=== PATIENT | female | born 1955 ===

== ENCOUNTER 2017-11-03 20:42 | Inpatient (IN) | payer BC, OTHER ==
[2017-11-03] MEDS ORDERED: Albuterol-Ipratrop 3 mg / 0.5 (3 ml) UD ONE ×2 (20:54→21:11)
[2017-11-03] MEDS ORDERED: Albuterol-Ipratrop 3 mg / 0.5 (3 ml) UD INH STA ×3 (21:11→21:12)
--- NOTE | 2017-11-03 21:11 | C.PDOC ---
"History Of Present Illness 62 y/o female presents to ED with c/o sob and cough for 1 week and abdominal pain. Patient states cough is productive and denies fever, chest pain, nausea, vomiting or any other complaints at this time. Chief Complaint (Nursing): Shortness Of Breath History Per: Patient History/Exam Limitations: no limitations Onset/Duration Of Symptoms: Days Current Symptoms Are (Timing): Still Present Past Medical History Reviewed: Historical Data, Nursing Documentation, Vital Signs Vital Signs: Last Vital Signs Temp 99.1 F 11/03/17 20:45 Pulse 102 H 11/03/17 23:07 Resp 16 11/03/17 23:07 BP 123/55 L 11/03/17 23:07 Pulse Ox 98 11/04/17 01:11 - Medical History PMH: Bronchitis (1 month ago), HTN Surgical History: No Surg Hx Family History: States: No Known Family Hx - Social History Hx Tobacco Use: No Hx Alcohol Use: No Hx Substance Use: No - Immunization History Hx Tetanus Toxoid Vaccination: No Hx Influenza Vaccination: No Hx Pneumococcal Vaccination: No Review Of Systems Constitutional: Negative for: Fever, Chills Cardiovascular: Negative for: Chest Pain Respiratory: Positive for: Cough, Shortness of Breath Gastrointestinal: Negative for: Nausea, Vomiting Skin: Negative for: Rash Physical Exam - Physical Exam Appears: Non-toxic, No Acute Distress Skin: Warm, Dry, No Rash Head: Atraumatic, Normacephalic Eye(s): bilateral: Normal Inspection Oral Mucosa: Moist Neck: Normal ROM, Supple Cardiovascular: Rhythm Regular Respiratory: Decreased Breath Sounds, No Rales, No Rhonchi, No Wheezing Gastrointestinal/Abdominal: Soft, Tenderness (Epigastric), No Guarding, No Rebound Back: No CVA Tenderness, No Paraspinal Tenderness Neurological/Psych: Oriented x3, Normal Speech, Normal Cognition ED Course And Treatment - Laboratory Results Result Diagrams: 11/03/17 21:25 11/03/17 21:25 ECG: Interpreted By Me, Viewed By Me ECG Rhythm: Sinus Rhythm ECG Interpretation: Normal, No Acute Changes Interpretation Of ECG: nomal tracings, Rate From EC O2 Sat by Pulse Oximetry: 98 (RA) Pulse Ox Interpretation: Normal - CT Scan/US CT Angio Chest Other Rad Studies (CT/US): Read By Radiologist, Radiology Report Reviewed CT/US Interpretation: EXAM: CT Angiography Chest With Intravenous Contrast. EXAM DATE/TIME: 11/03/2017 10:11 PM. CLINICAL HISTORY: 62 years old, female; Pain; Chest wall pain; Additional info: SOB. TECHNIQUE: Axial computed tomographic angiography images of the chest with intravenous contrast using. pulmonary embolism protocol. All CT scans at this facility use at least one of these dose optimization. techniques: automated exposure control; mA and/or kV adjustment per patient size (includes targeted. exams where dose is matched to clinical indication); or iterative reconstruction. MIP reconstructed images were created and reviewed. COMPARISON: No relevant prior studies available. FINDINGS: Pulmonary arteries: Unremarkable. No pulmonary embolism. Aorta: No acute findings. No thoracic aortic aneurysm. Lungs: Patchy consolidative opacities in the right middle lobe. Pleural space: Unremarkable. No significant effusion. No pneumothorax. Heart: Unremarkable. No cardiomegaly. No significant pericardial effusion. No evidence of RV. dysfunction. Thyroid: Right thyroid lobe 4 x 3.4 x 6 cm thyroid nodule exerts mass effect on the esophagus. Bones/joints: No acute fracture. No dislocation. Soft tissues: Unremarkable. Lymph nodes: Unremarkable. No enlarged lymph nodes. IMPRESSION: 1. No pulmonary embolism. 2. Right middle lobe pneumonia. 3. Right thyroid lobe 4 x 3.4 x 6 cm thyroid nodule exerts mass effect on the esophagus. CT Abdomen&Pelvis Other Rad Studies (CT/US): Read By Radiologist, Radiology Report Reviewed CT/US Interpretation: EXAM: CT Abdomen and Pelvis With Intravenous Contrast. EXAM DATE/TIME: 11/03/2017 9:14 PM. CLINICAL HISTORY: 62 years old, female; Pain; Abdominal pain; Flank; Left upper quadrant (luq); Additional info: Upper. abd pain. TECHNIQUE: Axial computed tomography images of the abdomen and pelvis with intravenous contrast. All CT. scans at this facility use at least one of these dose optimization techniques: automated exposure. control; mA and/ or kV adjustment per patient size (includes targeted exams where dose is matched to. clinical indication); or iterative reconstruction. Coronal and sagittal reformatted images were created and reviewed. COMPARISON: No relevant prior studies available. FINDINGS: Lung bases: See concurrent chest CT for findings above the diaphragm. ABDOMEN: Liver: Unremarkable. No mass. Gallbladder and bile ducts: Unremarkable. No calcified stones. No ductal dilation. Pancreas: Unremarkable. No mass. No ductal dilation. Spleen: Unremarkable. No splenomegaly. Adrenals: Unremarkable. No mass. Kidneys and ureters: Unremarkable. No solid mass. No hydronephrosis. Stomach and bowel: Unremarkable. No obstruction. No mucosal thickening. PELVIS: Appendix: No findings to suggest acute appendicitis. MARY WANG | Preliminary Radiology Report. CONFIDENTIALITY STATEMENT. This report is intended only for the use of the referring physician, and only in accordance with law, If you received this in error, call [phone]. Page 2 of 2. Bladder: Unremarkable. No mass. Reproductive: Left ovarian 2.4 cm cyst is benign appearing. ABDOMEN and PELVIS: Intraperitoneal space: Unremarkable. No free air. No significant fluid collection. Bones/joints: Degenerative changes are present in the lower lumbar spine. No acute fracture. No. dislocation. Soft tissues: Unremarkable. Vasculature: Unremarkable. No abdominal aortic aneurysm. Lymph nodes: Unremarkable. No enlarged lymph nodes. IMPRESSION: 1. No acute obstructive or inflammatory process in the abdomen or pelvis. 2. Left ovarian 2.4 cm cyst is benign appearing. Disposition Discussed With : Lisa Gordon Doctor Will See Patient In The: Hospital Counseled Patient/Family Regarding: Diagnosis - Disposition Disposition: HOSPITALIZED Disposition Time: 01:05 Condition: STABLE Forms: [facility] (Thai) - POA Present On Arrival: None - Clinical Impression Clinical Impression: Pneumonia, Thyroid enlarged - Scribe Statement The provider has reviewed the documentation as recorded by the Radha Brenner All medical record entries made by the Radha were at my direction and personally dictated by me. I have reviewed the chart and agree that the record accurately reflects my personal performance of the history, physical exam, medical decision making, and the department course for this patient. I have also personally directed, reviewed, and agree with the discharge instructions and disposition."
[2017-11-03] MEDS ORDERED: Sodium Chloride 0.9% 1,000 ML IV ONE (21:12)
--- NOTE | 2017-11-03 21:15 | C.PDOC ---
Chief Complaint (Nursing): Shortness Of Breath Past Medical History Vital Signs: Last Vital Signs Temp 99.1 F 11/03/17 20:45 Pulse 117 H 11/03/17 20:45 Resp 28 H 11/03/17 20:45 BP 147/67 11/03/17 20:45 Pulse Ox 98 11/03/17 20:45 - Medical History PMH: Bronchitis (1 month ago), HTN Denies: Chronic Kidney Disease Family History: States: Unknown Family Hx - Social History Hx Tobacco Use: No Hx Alcohol Use: No Hx Substance Use: No - Immunization History Hx Tetanus Toxoid Vaccination: No Hx Influenza Vaccination: No Hx Pneumococcal Vaccination: No ED Course And Treatment O2 Sat by Pulse Oximetry: 98 Disposition - Disposition
[2017-11-03 21:29] LABS: BASO # 0.1 K/uL (0.0-0.2); BASO % 0.7 % (0.0-2.0); EOS # 0.3 K/uL (0.0-0.7); HEMOGLOBIN 13.3 g/dL (11.0-16.0); LYMPH # 3.1 K/uL (1.0-4.3); LYMPH % 34.1 % (20.0-40.0); MEAN CELL VOLUME 86.7 fL (81.0-99.0); MEAN CORPUSCULAR HEMOGLOBIN 28.8 pg (27.0-31.0); MEAN CORPUSCULAR HGB CONC 33.2 g/dL (33.0-37.0); MEAN PLATELET VOLUME 6.8 fL (7.2-11.7); MONO % 10.7 % (0.0-10.0); NEUT # 4.6 K/uL (1.8-7.0); NEUT % 51.5 % (50.0-75.0); NRBC % 0.2 % (0.0-2.0); RBC 4.64 Mil/uL (3.80-5.20); RED CELL DISTRIBUTION WIDTH 13.5 % (11.5-14.5); WHITE BLOOD COUNT 8.9 K/uL (4.8-10.8)
[2017-11-03 21:43] LABS: INR 1.1; PROTHROMBIN TIME 12.4 SECONDS (9.7-12.2)
[2017-11-03 21:48] LABS: ALB/GLOB RATIO 1.2 (1.0-2.1); ALBUMIN 4.6 g/dL (3.5-5.0); ALT/SGPT 40 U/L (9-52); AST/SGOT 36 U/L (14-36); BLOOD UREA NITROGEN 11 mg/dL (7-17); CALCIUM 9.4 mg/dl (8.6-10.4); GFR AFRICAN-AMERICAN > 60; GFR NON-AFRICAN AMERICAN > 60; LIPASE 87 U/L (23-300)
[2017-11-03] MEDS ORDERED: Iodixanol 320 MG/ML 100 ML BOTTLE IV ONE (21:57)
[2017-11-03 21:58] LABS: B-TYPE NATRIURETIC PEPTIDE 33.8 pg/mL (0-900)
[2017-11-04] MEDS ORDERED: cefTRIAXone IV 1 gm in Dextros 50 ML IVPB ONE ×2 (00:56→01:06)
[2017-11-04] MEDS ORDERED: Azithromycin 500mg/250ML NS 500 MG/250 ML BAG IV STA (00:57)
[2017-11-04 02:03] VITALS: RESP 20
[2017-11-04] MEDS ORDERED: guaiFENesin 100 mg/5 ml Syrup UD PO ONE (02:34)
[2017-11-04] MEDS ORDERED: Albuterol-Ipratrop 3 mg / 0.5 (3 ml) UD INH SCH (08:00)
--- NOTE | 2017-11-04 08:10 | CT ---
PROCEDURE: CT Abdomen and Pelvis with intravenous contrast HISTORY: Upper abdominal pain COMPARISON: None. TECHNIQUE: Multiple contiguous axial images were performed through the abdomen and pelvis with the use of intravenous contrast. Subsequently, sagittal and coronal reformatted images were obtained. Radiation dose: Total exam DLP = eight hundred twelve mGy-cm. This CT exam was performed using one or more of the following dose reduction techniques: Automated exposure control, adjustment of the mA and/or kV according to patient size, and/or use of iterative reconstruction technique. FINDINGS: LOWER THORAX: Prominent ill-defined consolidation seen within the posterior aspect of the right middle lobe. LIVER: Unremarkable. No gross lesion or ductal dilatation. GALLBLADDER AND BILE DUCTS: Unremarkable. PANCREAS: Unremarkable. No gross lesion or ductal dilatation. SPLEEN: Unremarkable. ADRENALS: Unremarkable. No mass. KIDNEYS AND URETERS: Multiple bilateral low-attenuation lesions in both kidneys for example in the right kidney measuring 2.2 centimeters demonstrating a Hounsfield unit attenuation of 22 and in the left kidney measuring 2.3 centimeters demonstrating a Hounsfield unit attenuation of 11. These may be better evaluated with multiphasic CT or MR if clinically indicated. VASCULATURE: Unremarkable. No aortic aneurysm. BOWEL: Unremarkable. No obstruction. No gross mural thickening. APPENDIX: No findings to suggest acute appendicitis. PERITONEUM: Unremarkable. No free fluid. No free air. LYMPH NODES: Unremarkable. No enlarged lymph nodes. BLADDER: Unremarkable. REPRODUCTIVE: 2.4 centimeter left ovarian cyst. BONES: Degenerative changes in the lower lumbar spine. Prominent disc space narrowing with posterior disc osteophyte complex at the L5-S1 level. OTHER FINDINGS: None. IMPRESSION: 2.4 centimeter left ovarian cyst. Ill-defined nodular consolidation within the right middle lobe of the lung. Clinical correlation. Multiple bilateral low-attenuation lesions in both kidneys for example in the right kidney measuring 2.2 centimeters demonstrating a Hounsfield unit attenuation of 22 and in the left kidney measuring 2.3 centimeters demonstrating a Hounsfield unit attenuation of 11. These may be better evaluated with multiphasic CT or MR if clinically indicated. These findings were preliminarily reported at 11:12 p.m. on 11/03/[address] Mandeep Hummel from [employer].
--- NOTE | 2017-11-04 08:38 | CT ---
PROCEDURE: CT Chest with contrast (Pulmonary Angiogram) HISTORY: Shortness of breath COMPARISON: None available. TECHNIQUE: Axial computed tomography images were obtained of the chest in the pulmonary arterial phase of enhancement. Coronal and sagittal reformatted images were created and reviewed. Sagittal and coronal MIPS reformatted images were obtained. Radiation dose: Total exam DLP = 449 mGy-cm. This CT exam was performed using one or more of the following dose reduction techniques: Automated exposure control, adjustment of the mA and/or kV according to patient size, and/or use of iterative reconstruction technique. FINDINGS: PULMONARY ARTERIES: Unremarkable. No pulmonary embolism. AORTA: No acute findings. No thoracic aortic aneurysm. LUNGS: Prominent ill-defined patchy consolidation seen within the right middle lobe. PLEURAL SPACES: Unremarkable. No effusion or pneuomothorax. HEART: Unremarkable. No cardiomegaly. No significant pericardial effusion. LYMPH NODES: No lymphadenopathy. BONES, CHEST WALL: Unremarkable. No fracture or destructive lesion OTHER FINDINGS: 4.0 x 3.4 x 6.0 centimeter thyroid nodule exerts mass effect on the esophagus. IMPRESSION: No acute central pulmonary embolism. Focal ill-defined consolidative changes noted within the right middle lobe of the lung concerning for possible pneumonia. Posttreatment interval followup exam would be helpful for further evaluation if clinically indicated. 6 centimeter right thyroid nodule exerts mass effect on the esophagus. Correlation with thyroid ultrasound may be helpful if clinically indicated. These findings were preliminarily reported at 11:08 p.m. on 11/03/[address] Mandeep Hummel from [facility].
--- NOTE | 2017-11-04 09:27 | RAD ---
Chest x-ray single frontal view History: Shortness of breath. Comparison: 05/15/2016 Findings: Mild venous congestion. Confluent consolidation seen within the right mid lung zone concerning for infiltrate. Tortuous aorta. Heart size within normal limits. Degenerative changes in the spine. Impression: Prominent consolidative changes seen within the right mid lung zone. Clinical correlation.
[2017-11-04] MEDS: Promethazine 6.25 MG/5 ML CUP PO PRN ×2 (09:49→18:07)
[2017-11-04] MEDS: Enoxaparin 40 mg Syringe SC SCH (09:50)
[2017-11-04] MEDS: Albuterol-Ipratrop 3 mg / 0.5 (3 ml) UD INH SCH ×2 (16:01→19:17)
[2017-11-04 16:14] LABS: SQUAMOUS EPITHIAL 1 /hpf (0-5); URINE BILIRUBIN NEGATIVE (NEGATIVE); URINE BLOOD NEGATIVE (NEGATIVE); URINE CLARITY Clear (Clear); URINE COLOR Yellow (YELLOW); URINE GLUCOSE (UA) NORMAL (Normal); URINE LEUKOCYTE ESTERASE NEG Leu/uL (Negative); URINE PROTEIN NEGATIVE (NEGATIVE); URINE UROBILINOGEN NORMAL mg/dL (0.2-1.0)
--- NOTE | 2017-11-04 21:00 | CP.PCM.HP ---
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 Patient was complaining of cough for almost 2-3 weeks, even prior to that she was having on and off cough especially at nighttime when she is lying down. But for the last 2-3 weeks she was having increasing cough, recently she started having increasing weakness, tiredness, easy fatigability. Sweating noted. Chills present. But no fever noted. She was also having cough, mostly dry in nature, occasionally mucus noted. Which is yellow in discoloration. She does not have any blood in the mucus. She denies any nausea vomiting, but complaining of abdominal pain on and off because of the cough. As the patient condition got worse, she was seen, and evaluated in the emergency room. In the emergency room patient underwent extensive workup, and noted to have pneumonia in the lungs. 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 Patient is having some headache, no nausea vomiting, but complaining of increasing cough, shortness of breath, exertional dyspnea noted. Abdominal pain with the cough noted, no diarrhea Current medications none On examination: Vital signs stable. Chest bilateral minimal expiratory wheezing noted. Regular heart sound noted. Nontender abdomen. Pedal edema 1+ noted Patient's labs reviewed Nonspecific. Mild elevation of the glucose noted. Pro calcitonin level is normal. CBC is negative. D-dimer elevated. INR is 1.1. Patient underwent a CAT scan of the lungs with contrast to rule out a PE. No acute pulmonary embolism noted, consolidation noted in the right midlung. 6 cm thyroid nodule with mass-effect in the esophagus noted. CAT scan of the abdomen and pelvis reviewed 2.4 cm left ovarian cyst noted multiple low-attenuation lesions in the kidney noted 2.2 cm and 2.3 cm, which may needed to do an MRI with contrast if needed. Assessment and recommendation: 62-year-old female with history of chronic lower back pain osteoarthritis and a substernal goiter admitted now with the possible acute pneumonia. Patient will need IV antibiotic. Bronchodilator. Patient also has slightly worsening substernal goiter, with minimal mass-effect also noted in the esophagus, surgical evaluation advised. DVT GI prophylaxis. We will continue the current treatment. We will follow the patient Present on Admission - Present on Admission Any Indicators Present on Admission: No History of DVT/PE: No History of Uncontrolled Diabetes: No Urinary Catheter: No Decubitus Ulcer Present: No Past Patient History - Past Medical History & Family History Past Medical History?: Yes - Past Social History Smoking Status: Never Smoked - CARDIAC Hx Hypertension: Yes - PULMONARY Hx Bronchitis: Yes (1 month ago) - NEUROLOGICAL Hx Neurological Disorder: No - HEENT Hx HEENT Problems: No - RENAL Hx Chronic Kidney Disease: No - ENDOCRINE/METABOLIC Hx Endocrine Disorders: No - HEMATOLOGICAL/ONCOLOGICAL Hx Blood Disorders: No - INTEGUMENTARY Hx Dermatological Problems: No - MUSCULOSKELETAL/RHEUMATOLOGICAL Hx Musculoskeletal Disorders: No Hx Falls: No - GASTROINTESTINAL Hx Gastrointestinal Disorders: No - GENITOURINARY/GYNECOLOGICAL Hx Genitourinary Disorders: No - PSYCHIATRIC Hx Substance Use: No - SURGICAL HISTORY Hx Surgeries: Yes Hx Section: Yes (x6) - ANESTHESIA Hx Anesthesia: Yes Hx Anesthesia Reactions: No Hx Malignant Hyperthermia: No Meds Allergies/Adverse Reactions: Allergies Allergy/AdvReac Type Severity Reaction Status Date / Time No Known Allergies Allergy Verified 05/15/16 18:40 Results - Vital Signs Recent Vital Signs: Last Vital Signs Temp 97.8 F 11/04/17 16:00 Pulse 75 11/04/17 16:00 Resp 20 11/04/17 16:00 BP 101/63 11/04/17 16:00 Pulse Ox 95 11/04/17 16:00 - Labs Result Diagrams: 11/03/17 21:25 11/03/17 21:25 Labs: Laboratory Results - last 24 hr 11/03/17 11/03/17 11/03/17 21:25 21:25 21:25 WBC 8.9 RBC 4.64 Hgb 13.3 Hct 40.2 MCV 86.7 MCH 28.8 MCHC 33.2 RDW 13.5 Plt Count 367 MPV 6.8 L Neut % (Auto) 51.5 Lymph % (Auto) 34.1 [place] % (Auto) 10.7 H Eos % (Auto) 3.0 Baso % (Auto) 0.7 Neut # (Auto) 4.6 Lymph # (Auto) 3.1 [place] # (Auto) 1.0 H Eos # (Auto) 0.3 Baso # (Auto) 0.1 PT 12.4 H INR 1.1 D-Dimer, Quantitative 343 H Sodium 143 Potassium 4.4 Chloride 102 Carbon Dioxide 29 Anion Gap 16 BUN 11 Creatinine 0.8 Est GFR ( Amer) > 60 Est GFR (Non-Af Amer) > 60 Random Glucose 112 H Calcium 9.4 Total Bilirubin 0.9 AST 36 ALT 40 Alkaline Phosphatase 93 Troponin I < 0.0120 NT-Pro-B Natriuret Pep 33.8 Total Protein 8.4 H Albumin 4.6 Globulin 3.9 Albumin/Globulin Ratio 1.2 Lipase 87 Procalcitonin Free T4 Total T3 Urine Color Urine Clarity Urine pH Ur Specific [place] Urine Protein Urine Glucose (UA) Urine Ketones Urine Blood Urine Nitrate Urine Bilirubin Urine Urobilinogen Ur Leukocyte Esterase Urine WBC (Auto) Urine RBC (Auto) Ur Squamous Epith Cells 11/04/17 11/04/17 11/04/17 01:27 01:27 10:02 WBC RBC Hgb Hct MCV MCH MCHC RDW Plt Count MPV Neut % (Auto) Lymph % (Auto) [place] % (Auto) Eos % (Auto) Baso % (Auto) Neut # (Auto) Lymph # (Auto) [place] # (Auto) Eos # (Auto) Baso # (Auto) PT INR D-Dimer, Quantitative Sodium Potassium Chloride Carbon Dioxide Anion Gap BUN Creatinine Est GFR ( Amer) Est GFR (Non-Af Amer) Random Glucose Calcium Total Bilirubin AST ALT Alkaline Phosphatase Troponin I NT-Pro-B Natriuret Pep Total Protein Albumin Globulin Albumin/Globulin Ratio Lipase Procalcitonin < 0.05 L Free T4 1.45 Total T3 1.82 Urine Color Urine Clarity Urine pH Ur Specific [place] Urine Protein Urine Glucose (UA) Urine Ketones Urine Blood Urine Nitrate Urine Bilirubin Urine Urobilinogen Ur Leukocyte Esterase Urine WBC (Auto) Urine RBC (Auto) Ur Squamous Epith Cells 11/04/17 16:06 WBC RBC Hgb Hct MCV MCH MCHC RDW Plt Count MPV Neut % (Auto) Lymph % (Auto) [place] % (Auto) Eos % (Auto) Baso % (Auto) Neut # (Auto) Lymph # (Auto) [place] # (Auto) Eos # (Auto) Baso # (Auto) PT INR D-Dimer, Quantitative Sodium Potassium Chloride Carbon Dioxide Anion Gap BUN Creatinine Est GFR ( Amer) Est GFR (Non-Af Amer) Random Glucose Calcium Total Bilirubin AST ALT Alkaline Phosphatase Troponin I NT-Pro-B Natriuret Pep Total Protein Albumin Globulin Albumin/Globulin Ratio Lipase Procalcitonin Free T4 Total T3 Urine Color Yellow Urine Clarity Clear Urine pH 5.0 Ur Specific [place] 1.027 Urine Protein Negative Urine Glucose (UA) Normal Urine Ketones Negative Urine Blood Negative Urine Nitrate Negative Urine Bilirubin Negative Urine Urobilinogen Normal Ur Leukocyte Esterase Neg Urine WBC (Auto) < 1 Urine RBC (Auto) 1 Ur Squamous Epith Cells 1
--- NOTE | 2017-11-04 23:24 | CARD ---
APPROVED REPORT EKG Measurement Heart [id number] <Conclusion> Normal sinus rhythm Normal ECG
[2017-11-05] MEDS: Promethazine 6.25 MG/5 ML CUP PO PRN ×2 (00:35→17:53)
[2017-11-05] MEDS: Azithromycin 500 MG in Sodium Chloride 0.9% 250 ML IVPB SCH (01:20)
[2017-11-05] MEDS: Albuterol-Ipratrop 3 mg / 0.5 (3 ml) UD INH SCH ×4 (01:23→19:57)
[2017-11-05 07:47] LABS: BASO % 0.2 % (0.0-2.0); EOS % 0.2 % (0.0-4.0); HEMOGLOBIN 12.3 g/dL (11.0-16.0); LYMPH # 2.1 K/uL (1.0-4.3); LYMPH % 22.2 % (20.0-40.0); MEAN CORPUSCULAR HEMOGLOBIN 29.7 pg (27.0-31.0); MEAN CORPUSCULAR HGB CONC 34.1 g/dL (33.0-37.0); MEAN PLATELET VOLUME 6.9 fL (7.2-11.7); MONO # 0.6 K/uL (0.0-0.8); MONO % 6.3 % (0.0-10.0); NEUT # 6.8 K/uL (1.8-7.0); NEUT % 71.1 % (50.0-75.0); RBC 4.13 Mil/uL (3.80-5.20); RED CELL DISTRIBUTION WIDTH 13.8 % (11.5-14.5); WHITE BLOOD COUNT 9.6 K/uL (4.8-10.8)
[2017-11-05 08:10] LABS: ALB/GLOB RATIO 1.2 (1.0-2.1); ALBUMIN 3.7 g/dL (3.5-5.0); ALT/SGPT 30 U/L (9-52); AST/SGOT 33 U/L (14-36); BLOOD UREA NITROGEN 16 mg/dL (7-17); CALCIUM 8.5 mg/dl (8.6-10.4); GFR AFRICAN-AMERICAN > 60; GFR NON-AFRICAN AMERICAN > 60
[2017-11-05] MEDS: Enoxaparin 40 mg Syringe SC SCH (10:39)
--- NOTE | 2017-11-05 11:12 | CP.PCM.CON ---
<Rodrigo Angela - Last Filed: 11/05/17 10:58> History of Present Illness - History of Present Illness History of Present Illness: General Surgery Consult Note for Dr. Duran Consulted for: Goiter 62F presenting with PNA for the past 2 weeks that has progressively worsened.Pt has a known history of a goiter that she has had for over a year confirmed with outpatient CT scan through her PCP. A 2014 CT scan shows goiter with mass effect. She feels the presence of goiter but no dysphagia. She denies any fever or chills. She admits to SOB that worsens with exertion. She cannot go up an entire flight of stairs without having to catch her breath every few steps. Pt reports normal ECHO a year ago. Denies any weight changes or heat/cold intolerance. PMH: Goiter PSH: ALL: none Social: denies tobacco, alcohol, and drugs Review of Systems - Constitutional Constitutional: absent: Night Sweats, Weight Gain, Weight Loss - Cardiovascular Cardiovascular: Dyspnea on Exertion. absent: Chest Pain - Respiratory Respiratory: Cough, Dyspnea on Exertion, Chest Congestion - Endocrine Endocrine: absent: Cold Intolorance, Heat Intolorance Past Patient History - Past Medical History & Family History Past Medical History?: Yes - Past Social History Smoking Status: Never Smoked - CARDIAC Hx Hypertension: Yes - PULMONARY Hx Bronchitis: Yes (1 month ago) - NEUROLOGICAL Hx Neurological Disorder: No - HEENT Hx HEENT Problems: No - RENAL Hx Chronic Kidney Disease: No - ENDOCRINE/METABOLIC Hx Endocrine Disorders: No - HEMATOLOGICAL/ONCOLOGICAL Hx Blood Disorders: No - INTEGUMENTARY Hx Dermatological Problems: No - MUSCULOSKELETAL/RHEUMATOLOGICAL Hx Musculoskeletal Disorders: No Hx Falls: No - GASTROINTESTINAL Hx Gastrointestinal Disorders: No - GENITOURINARY/GYNECOLOGICAL Hx Genitourinary Disorders: No - PSYCHIATRIC Hx Substance Use: No - SURGICAL HISTORY Hx Surgeries: Yes Hx Section: Yes (x6) - ANESTHESIA Hx Anesthesia: Yes Hx Anesthesia Reactions: No Hx Malignant Hyperthermia: No Meds Allergies/Adverse Reactions: Allergies Allergy/AdvReac Type Severity Reaction Status Date / Time No Known Allergies Allergy Verified 05/15/16 18:40 - Medications Medications: Current Medications Acetaminophen (Tylenol 325mg Tab) 650 mg PO Q8 PRN PRN Reason: Fever >100.4 F Albuterol/Ipratropium (Duoneb 3 Mg/0.5 Mg (3 Ml) Ud) 3 ml INH RQ6 IRASEMA Last Admin: 11/05/17 07:45 Dose: 3 ml Enoxaparin Sodium (Lovenox) 40 mg SC DAILY [facility] Last Admin: 11/05/17 10:39 Dose: Not Given Ceftriaxone Sodium 1 gm/ (Sodium Chloride) 100 mls @ 100 mls/hr IVPB Q24H IRASEMA PRN Reason: Protocol Last Admin: 11/05/17 00:35 Dose: 100 mls/hr Azithromycin 500 mg/ Sodium (Chloride) 250 mls @ 250 mls/hr IVPB Q24H IRASEMA PRN Reason: Protocol Last Admin: 11/05/17 01:20 Dose: 250 mls/hr Promethazine HCl (Phenergan Syrup) 6.25 mg PO Q6 PRN PRN Reason: Cough Last Admin: 11/05/17 00:35 Dose: 6.25 mg Physical Exam - Constitutional Appears: Non-toxic, No Acute Distress - Head Exam Head Exam: ATRAUMATIC, NORMAL INSPECTION, NORMOCEPHALIC - Eye Exam Eye Exam: EOMI, Normal appearance - ENT Exam ENT Exam: Mucous Membranes Moist - Neck Exam Neck exam: Positive for: Thyromegaly. Negative for: Tenderness - Respiratory Exam Respiratory Exam: NORMAL BREATHING PATTERN. absent: Respiratory Distress - Cardiovascular Exam Cardiovascular Exam: REGULAR RHYTHM, +S1, +S2 - GI/Abdominal Exam GI & Abdominal Exam: Soft. absent: Distended, Firm, Guarding, Tenderness - Rectal Exam Rectal Exam: Deferred - Extremities Exam Extremities exam: Positive for: normal inspection - Neurological Exam Neurological exam: Alert, Oriented x3 - Psychiatric Exam Psychiatric exam: Normal Affect, Normal Mood - Skin Skin Exam: Dry, Intact, Normal Color, Warm Results - Vital Signs Recent Vital Signs: Last Vital Signs Temp 98.0 F 11/05/17 07:00 Pulse 66 11/05/17 07:00 Resp 20 11/05/17 07:00 BP 100/58 L 11/05/17 07:00 Pulse Ox 96 11/05/17 07:00 - Labs Result Diagrams: 11/05/17 07:38 11/05/17 07:38 Labs: Laboratory Results - last 24 hr 11/04/17 11/04/17 11/05/17 10:02 16:06 07:38 WBC 9.6 RBC 4.13 Hgb 12.3 Hct 35.9 MCV 87.0 MCH 29.7 MCHC 34.1 RDW 13.8 Plt Count 331 MPV 6.9 L Neut % (Auto) 71.1 Lymph % (Auto) 22.2 [place] % (Auto) 6.3 Eos % (Auto) 0.2 Baso % (Auto) 0.2 Neut # (Auto) 6.8 Lymph # (Auto) 2.1 [place] # (Auto) 0.6 Eos # (Auto) 0.0 Baso # (Auto) 0.0 Sodium Potassium Chloride Carbon Dioxide Anion Gap BUN Creatinine Est GFR ( Amer) Est GFR (Non-Af Amer) Random Glucose Calcium Total Bilirubin AST ALT Alkaline Phosphatase Total Protein Albumin Globulin Albumin/Globulin Ratio Procalcitonin < 0.05 L TSH 3rd Generation Urine Color Yellow Urine Clarity Clear Urine pH 5.0 Ur Specific [place] 1.027 Urine Protein Negative Urine Glucose (UA) Normal Urine Ketones Negative Urine Blood Negative Urine Nitrate Negative Urine Bilirubin Negative Urine Urobilinogen Normal Ur Leukocyte Esterase Neg Urine WBC (Auto) < 1 Urine RBC (Auto) 1 Ur Squamous Epith Cells 1 11/05/17 07:38 WBC RBC Hgb Hct MCV MCH MCHC RDW Plt Count MPV Neut % (Auto) Lymph % (Auto) [place] % (Auto) Eos % (Auto) Baso % (Auto) Neut # (Auto) Lymph # (Auto) [place] # (Auto) Eos # (Auto) Baso # (Auto) Sodium 146 Potassium 4.2 Chloride 110 H Carbon Dioxide 26 Anion Gap 15 BUN 16 Creatinine 0.6 L Est GFR ( Amer) > 60 Est GFR (Non-Af Amer) > 60 Random Glucose 103 Calcium 8.5 L Total Bilirubin 0.4 AST 33 ALT 30 Alkaline Phosphatase 66 Total Protein 6.8 Albumin 3.7 Globulin 3.1 Albumin/Globulin Ratio 1.2 Procalcitonin TSH 3rd Generation 0.14 L Urine Color Urine Clarity Urine pH Ur Specific [place] Urine Protein Urine Glucose (UA) Urine Ketones Urine Blood Urine Nitrate Urine Bilirubin Urine Urobilinogen Ur Leukocyte Esterase Urine WBC (Auto) Urine RBC (Auto) Ur Squamous Epith Cells - Imaging and Cardiology CT scan - chest Status: Image reviewed by me, Report reviewed by me Assessment & Plan - Assessment and Plan (Free Text) Assessment: 62F admitted with PNA consulted for 6 cm Goiter Plan: Continue medical management for PNA Recommend cardiology work up for Dyspnea on Exertion Further recs per Dr. Roger Angela PGY1 <Freddie Duran - Last Filed: 11/06/17 21:08> Meds - Medications Medications: Current Medications Acetaminophen (Tylenol 325mg Tab) 650 mg PO Q8 PRN PRN Reason: Fever >100.4 F Last Admin: 11/05/17 12:54 Dose: 650 mg Albuterol/Ipratropium (Duoneb 3 Mg/0.5 Mg (3 Ml) Ud) 3 ml INH RQ6 IRASEMA Last Admin: 11/06/17 20:34 Dose: 3 ml Enoxaparin Sodium (Lovenox) 40 mg SC DAILY IRASEMA Last Admin: 11/06/17 10:03 Dose: Not Given Ceftriaxone Sodium 1 gm/ (Sodium Chloride) 100 mls @ 100 mls/hr IVPB Q24H IRASEMA PRN Reason: Protocol Last Admin: 11/06/17 01:19 Dose: 100 mls/hr Azithromycin 500 mg/ Sodium (Chloride) 250 mls @ 250 mls/hr IVPB Q24H IRASEMA PRN Reason: Protocol Last Admin: 11/06/17 01:20 Dose: 250 mls/hr Promethazine HCl (Phenergan Syrup) 6.25 mg PO Q6 PRN PRN Reason: Cough Last Admin: 11/06/17 13:46 Dose: 6.25 mg Results - Vital Signs Recent Vital Signs: Last Vital Signs Temp 98.3 F 11/06/17 16:25 Pulse 71 11/06/17 16:25 Resp 20 11/06/17 16:25 BP 123/71 11/06/17 16:25 Pulse Ox 99 11/06/17 16:25 - Labs Result Diagrams: 11/05/17 07:38 11/05/17 07:38 Labs: Laboratory Results - last 24 hr 11/05/17 07:38 Thyroglobulin, Quant 54.2 H Thyroperoxidase Ab <1 Thyroglobulin Antibody <1 Attending/Attestation - Attestation I have personally seen and examined this patient.: Yes I have fully participated in the care of the patient.: Yes I have reviewed all pertinent clinical information: Yes Notes (Text): Pt was seen and examined at bedside Agree with above note and assessment Pt with Multinodular Goitre and Pneumonia Neck is supple, enlarged thyroid Labs and radiology reviewed Ass: Multinodular goiter, Pneumonia Plan: US guided biopsy C.w current treatment of pneumonia f/u as out pt Plan d.w pt in detail Risk and benefit explained in detail.
--- NOTE | 2017-11-05 23:52 | CP.PCM.PN ---
Subjective - Date & Time of Evaluation Date of Evaluation: 11/05/17 Time of Evaluation: 23:52 - Subjective Subjective: Patient is still having cough. Shortness of breath noted. Wheezing externally minimally noted. On examination: Vital signs stable. Chest bilateral good air entry Regular heart sound. Nontender abdomen. No pedal edema Thyromegaly noted. Sonogram the thyroid gland pending Labs reviewed Nonspecific. TSH is on the low side. Assessment and recommendation: 62-year-old female with a history of thyromegaly, hypercholesteremia osteoarthritis now admitted with acute pneumonia, on antibiotic. Will follow-up the patient. On antibiotic. Awaiting for surgical evaluation and follow-up. Will follow the patient Objective - Vital Signs/Intake and Output Vital Signs (last 24 hours): Temp Pulse Resp BP Pulse Ox 98.1 F 75 20 122/68 97 11/05/17 15:00 11/05/17 15:00 11/05/17 15:00 11/05/17 15:00 11/05/17 15:00 - Medications Medications: Current Medications Acetaminophen (Tylenol 325mg Tab) 650 mg PO Q8 PRN PRN Reason: Fever >100.4 F Last Admin: 11/05/17 12:54 Dose: 650 mg Albuterol/Ipratropium (Duoneb 3 Mg/0.5 Mg (3 Ml) Ud) 3 ml INH RQ6 IRASEMA Last Admin: 11/05/17 19:57 Dose: 3 ml Enoxaparin Sodium (Lovenox) 40 mg SC DAILY IRAS[facility] Last Admin: 11/05/17 10:39 Dose: Not Given Ceftriaxone Sodium 1 gm/ (Sodium Chloride) 100 mls @ 100 mls/hr IVPB Q24H IRASEMA PRN Reason: Protocol Last Admin: 11/05/17 00:35 Dose: 100 mls/hr Azithromycin 500 mg/ Sodium (Chloride) 250 mls @ 250 mls/hr IVPB Q24H IRASEMA PRN Reason: Protocol Last Admin: 11/05/17 01:20 Dose: 250 mls/hr Promethazine HCl (Phenergan Syrup) 6.25 mg PO Q6 PRN PRN Reason: Cough Last Admin: 11/05/17 17:53 Dose: 6.25 mg - Labs Labs: 11/05/17 07:38 11/05/17 07:38 PT 12.4 SECONDS (9.7-12.2) H 11/03/17 21:25 INR 1.1 11/03/17 21:25
[2017-11-06] MEDS: Azithromycin 500 MG in Sodium Chloride 0.9% 250 ML IVPB SCH (01:20)
[2017-11-06] MEDS: Promethazine 6.25 MG/5 ML CUP PO PRN ×2 (01:24→13:46)
[2017-11-06] MEDS: Albuterol-Ipratrop 3 mg / 0.5 (3 ml) UD INH SCH ×6 (01:41→20:34)
[2017-11-06] MEDS: Enoxaparin 40 mg Syringe SC SCH (10:03)
--- NOTE | 2017-11-06 12:05 | US ---
HISTORY: goiter TECHNIQUE: Sonographic evaluation of the thyroid gland. COMPARISON: Thyroid ultrasound dated 05/29/2014 FINDINGS: RIGHT LOBE: Measures 7.5 x 2.5 x 2.9 cm. Normal echotexture and flow. Nodules: Stable anterior isoechoic solid nodule measuring 1.5 x 1.2 x 1.1 cm. Stable heterogeneous lateral mid to lower pole nodule measuring 4.3 x 3.2 x 2.8 cm. LEFT LOBE: Measures 5.0 x 1.2 x 2.2 cm. Normal echotexture and flow. Nodules: Stable posterior midpole hypoechoic nodule measuring 1.5 x 0.7 x 0.9 cm. New isoechoic lower pole nodule measuring 1.4 x 0.7 x 1.2 cm. ISTHMUS: Measures 0.3 cm. Normal echotexture and flow. Nodules: None OTHER FINDINGS: None . IMPRESSION: New left lower pole nodule measuring 1.4 cm. Stable bilateral thyroid nodules.
[2017-11-06 18:42] LABS: THYROGLOBULIN 54.2 ng/mL (2.8-40.9)
--- NOTE | 2017-11-06 18:45 | RAD ---
HISTORY: PNA COMPARISON: Chest radiograph dated 11/03/2017. FINDINGS: LUNGS: Improved aeration in the right middle lobe. PLEURA: No significant pleural effusion identified, no pneumothorax apparent. CARDIOVASCULAR: Cardiomediastinal silhouette unchanged. OSSEOUS STRUCTURES: Unchanged. VISUALIZED UPPER ABDOMEN: Normal. OTHER FINDINGS: None. IMPRESSION: Improved right middle lobe aeration.
--- NOTE | 2017-11-06 19:18 | CP.PCM.PN ---
Subjective - Date & Time of Evaluation Date of Evaluation: 11/06/17 Time of Evaluation: 19:17 - Subjective Subjective: Patient is having much improvement. Minimal cough noted. No mucus production. No fever no chills. No nausea vomiting On examination: Vital signs stable. Chest bilateral good air entry. Regular heart sound. Nontender abdomen. No pedal edema Sonogram of the thyroid gland showing multiple nodules. Chest x-ray is clearing of infiltrate changes Assessment and recommendation: 62-year-old female with a history of osteoarthritis, thyromegaly goiter. Admitted with pneumonia. Clinically stable. We will continue the IV antibiotic. Surgical follow-up. Possible discharge plan tomorrow morning. Objective - Vital Signs/Intake and Output Vital Signs (last 24 hours): Temp Pulse Resp BP Pulse Ox 98.3 F 71 20 123/71 99 11/06/17 16:25 11/06/17 16:25 11/06/17 16:25 11/06/17 16:25 11/06/17 16:25 - Medications Medications: Current Medications Acetaminophen (Tylenol 325mg Tab) 650 mg PO Q8 PRN PRN Reason: Fever >100.4 F Last Admin: 11/05/17 12:54 Dose: 650 mg Albuterol/Ipratropium (Duoneb 3 Mg/0.5 Mg (3 Ml) Ud) 3 ml INH RQ6 IRASEMA Last Admin: 11/06/17 13:15 Dose: 3 ml Enoxaparin Sodium (Lovenox) 40 mg SC DAILY IRAS[facility] Last Admin: 11/06/17 10:03 Dose: Not Given Ceftriaxone Sodium 1 gm/ (Sodium Chloride) 100 mls @ 100 mls/hr IVPB Q24H IRASEMA PRN Reason: Protocol Last Admin: 11/06/17 01:19 Dose: 100 mls/hr Azithromycin 500 mg/ Sodium (Chloride) 250 mls @ 250 mls/hr IVPB Q24H IRASEMA PRN Reason: Protocol Last Admin: 11/06/17 01:20 Dose: 250 mls/hr Promethazine HCl (Phenergan Syrup) 6.25 mg PO Q6 PRN PRN Reason: Cough Last Admin: 11/06/17 13:46 Dose: 6.25 mg - Labs Labs: 11/05/17 07:38 11/05/17 07:38 PT 12.4 SECONDS (9.7-12.2) H 11/03/17 21:25 INR 1.1 11/03/17 21:25
[2017-11-07 01:11] VITALS: PULSE 77
[2017-11-07] MEDS: Azithromycin 500 MG in Sodium Chloride 0.9% 250 ML IVPB SCH (01:11)
[2017-11-07] MEDS: Albuterol-Ipratrop 3 mg / 0.5 (3 ml) UD INH SCH ×3 (02:08→13:24)
[2017-11-07 08:26] VITALS: BP 138/77; TEMP 97.9; O2SAT 97
[2017-11-07] MEDS: Enoxaparin 40 mg Syringe SC SCH (09:49)
[2017-11-07] MEDS: Promethazine 6.25 MG/5 ML CUP PO PRN (09:49)
--- NOTE | 2017-11-08 16:40 | CP.PCM.DIS ---
Provider - Provider Date of Admission: 11/04/17 01:08 Attending physician: Lisa Gordon MD Time Spent in preparation of Discharge (in minutes): 45 Hospital Course - Lab Results Lab Results: Micro Results 11/04/17 Unknown Blood Blood Culture - Preliminary NO GROWTH AFTER 4 DAYS 11/04/17 Unknown Blood Blood Culture - Preliminary NO GROWTH AFTER 4 DAYS Most Recent Lab Values WBC 9.6 K/uL (4.8-10.8) 11/05/17 07:38 RBC 4.13 Mil/uL (3.80-5.20) 11/05/17 07:38 Hgb 12.3 g/dL (11.0-16.0) 11/05/17 07:38 Hct 35.9 % (34.0-47.0) 11/05/17 07:38 MCV 87.0 fL (81.0-99.0) 11/05/17 07:38 MCH 29.7 pg (27.0-31.0) 11/05/17 07:38 MCHC 34.1 g/dL (33.0-37.0) 11/05/17 07:38 RDW 13.8 % (11.5-14.5) 11/05/17 07:38 Plt Count 331 K/uL (130-400) 11/05/17 07:38 MPV 6.9 fL (7.2-11.7) L 11/05/17 07:38 Neut % (Auto) 71.1 % (50.0-75.0) 11/05/17 07:38 Lymph % (Auto) 22.2 % (20.0-40.0) 11/05/17 07:38 [place] % (Auto) 6.3 % (0.0-10.0) 11/05/17 07:38 Eos % (Auto) 0.2 % (0.0-4.0) 11/05/17 07:38 Baso % (Auto) 0.2 % (0.0-2.0) 11/05/17 07:38 Neut # (Auto) 6.8 K/uL (1.8-7.0) 11/05/17 07:38 Lymph # (Auto) 2.1 K/uL (1.0-4.3) 11/05/17 07:38 [place] # (Auto) 0.6 K/uL (0.0-0.8) 11/05/17 07:38 Eos # (Auto) 0.0 K/uL (0.0-0.7) 11/05/17 07:38 Baso # (Auto) 0.0 K/uL (0.0-0.2) 11/05/17 07:38 PT 12.4 SECONDS (9.7-12.2) H 11/03/17 21:25 INR 1.1 11/03/17 21:25 D-Dimer, Quantitative 343 ng/mlDDU (0-243) H 11/03/17 21:25 Sodium 146 mmol/L (132-148) 11/05/17 07:38 Potassium 4.2 mmol/L (3.6-5.2) 11/05/17 07:38 Chloride 110 mmol/L (98-107) H 11/05/17 07:38 Carbon Dioxide 26 mmol/L (22-30) 11/05/17 07:38 Anion Gap 15 (10-20) 11/05/17 07:38 BUN 16 mg/dL (7-17) 11/05/17 07:38 Creatinine 0.6 mg/dL (0.7-1.2) L 11/05/17 07:38 Est GFR ( Amer) > 60 11/05/17 07:38 Est GFR (Non-Af Amer) > 60 11/05/17 07:38 Random Glucose 103 mg/dL (65-105) 11/05/17 07:38 Calcium 8.5 mg/dl (8.6-10.4) L 11/05/17 07:38 Total Bilirubin 0.4 mg/dL (0.2-1.3) 11/05/17 07:38 AST 33 U/L (14-36) 11/05/17 07:38 ALT 30 U/L (9-52) 11/05/17 07:38 Alkaline Phosphatase 66 U/L (38-126) 11/05/17 07:38 Troponin I < 0.0120 ng/mL (0.00-0.120) 11/03/17 21:25 NT-Pro-B Natriuret Pep 33.8 pg/mL (0-900) 11/03/17 21:25 Total Protein 6.8 g/dL (6.3-8.3) 11/05/17 07:38 Albumin 3.7 g/dL (3.5-5.0) 11/05/17 07:38 Globulin 3.1 gm/dL (2.2-3.9) 11/05/17 07:38 Albumin/Globulin Ratio 1.2 (1.0-2.1) 11/05/17 07:38 Lipase 87 U/L (23-300) 11/03/17 21:25 Procalcitonin < 0.05 NG/ML (0.19-0.49) L 11/04/17 10:02 Free T4 1.45 ng/dL (0.78-2.19) 11/04/17 01:27 Total T3 1.82 nmol/L (1.49-2.60) 11/04/17 01:27 Thyroglobulin, Quant 54.2 ng/mL (2.8-40.9) H 11/05/17 07:38 TSH 3rd Generation 0.14 mIU/L (0.46-4.68) L 11/05/17 07:38 Urine Color Yellow (YELLOW) 11/04/17 16:06 Urine Clarity Clear (Clear) 11/04/17 16:06 Urine pH 5.0 (5.0-8.0) 11/04/17 16:06 Ur Specific [place] 1.027 (1.003-1.030) 11/04/17 16:06 Urine Protein Negative mg/dL (NEGATIVE) 11/04/17 16:06 Urine Glucose (UA) Normal mg/dL (Normal) 11/04/17 16:06 Urine Ketones Negative mg/dL (NEGATIVE) 11/04/17 16:06 Urine Blood Negative (NEGATIVE) 11/04/17 16:06 Urine Nitrate Negative (NEGATIVE) 11/04/17 16:06 Urine Bilirubin Negative (NEGATIVE) 11/04/17 16:06 Urine Urobilinogen Normal mg/dL (0.2-1.0) 11/04/17 16:06 Ur Leukocyte Esterase Neg [place]/uL (Negative) 11/04/17 16:06 Urine WBC (Auto) < 1 /hpf (0-5) 11/04/17 16:06 Urine RBC (Auto) 1 /hpf (0-3) 11/04/17 16:06 Ur Squamous Epith Cells 1 /hpf (0-5) 11/04/17 16:06 Thyroperoxidase Ab <1 IU/mL (<9) 11/05/17 07:38 Thyroglobulin Antibody <1 IU/mL (< OR = 1) 11/05/17 07:38 - Hospital Course Hospital Course: Chief complaints: Cough HPI: 62-year-old female with a history of chronic back pain, osteoarthritis, and 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 Patient was complaining of cough for almost 2-3 weeks, even prior to that she was having on and off cough especially at nighttime when she is lying down. But for the last 2-3 weeks she was having increasing cough, recently she started having increasing weakness, tiredness, easy fatigability. Sweating noted. Chills present. But no fever noted. She was also having cough, mostly dry in nature, occasionally mucus noted. Which is yellow in discoloration. She does not have any blood in the mucus. She denies any nausea vomiting, but complaining of abdominal pain on and off because of the cough. As the patient condition got worse, she was seen, and evaluated in the emergency room. In the emergency room patient underwent extensive workup, and noted to have pneumonia in the lungs. 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 Patient is having some headache, no nausea vomiting, but complaining of increasing cough, shortness of breath, exertional dyspnea noted. Abdominal pain with the cough noted, no diarrhea Current medications none On examination: Vital signs stable. Chest bilateral minimal expiratory wheezing noted. Regular heart sound noted. Nontender abdomen. Pedal edema 1+ noted Patient's labs reviewed Nonspecific. Mild elevation of the glucose noted. Pro calcitonin level is normal. CBC is negative. D-dimer elevated. INR is 1.1. Patient underwent a CAT scan of the lungs with contrast to rule out a PE. No acute pulmonary embolism noted, consolidation noted in the right midlung. 6 cm thyroid nodule with mass-effect in the esophagus noted. CAT scan of the abdomen and pelvis reviewed 2.4 cm left ovarian cyst noted multiple low-attenuation lesions in the kidney noted 2.2 cm and 2.3 cm, which may needed to do an MRI with contrast if needed. Assessment and recommendation: 62-year-old female with history of chronic lower back pain osteoarthritis and a substernal goiter admitted now with the possible acute pneumonia. Patient will need IV antibiotic. Bronchodilator. Patient also has slightly worsening substernal goiter, with minimal mass-effect also noted in the esophagus, surgical evaluation advised. DVT GI prophylaxis. We will continue the current treatment. We will follow the patient Course in the hospital: Patient started on intravenous IV antibiotic including Rocephin, Zithromax. Patient slowly improved with cough. Repeat chest x-ray showing significant improvement in the pneumonia. CAT scan of the neck and sonogram showing evidence of thyromegaly, and also substernal goiter. Patient will need a thyroidectomy possibly. There is a slight compression of the trachea noted. Sonogram of the thyroid gland showing evidence of nodules. Which probably needs to be evaluated for possible biopsy. Explained to the patient Final diagnosis: Acute pneumonia. Thyromegaly and goiter. Discharge Exam - Head Exam Head Exam: ATRAUMATIC, NORMAL INSPECTION, NORMOCEPHALIC Discharge Plan - Discharge Medications Prescriptions: levoFLOXacin 500 mg in D5W [Levaquin 500MG] 500 mg IVPB DAILY #5 bag - Follow Up Plan Condition: STABLE Disposition: HOME/ ROUTINE Instructions: Heart Healthy Diet, Pneumonia, Adult (DC) Referrals: Lisa Gordon MD [Staff Provider] -
== END 2017-11-07 15:47 | disposition home or self-care (01) | DRG 195 ==
LOC: C.ER 20:42 → C.5S 11-04 01:08
PROVIDERS: ADMIT Internal Medicine; ATTEND Internal Medicine
DX: J18.9 Pneumonia, unspecified organism (principal); E04.9 Nontoxic goiter, unspecified; E78.00 Pure hypercholesterolemia, unspecified; I10 Essential (primary) hypertension; J45.909 Unspecified asthma, uncomplicated; M17.10 Unilateral primary osteoarthritis, unspecified knee

== ENCOUNTER 2017-12-18 08:41 | Day surgery (SDC) | payer OTHER ==
--- NOTE | 2017-12-18 12:27 | CP.SDSHP ---
Same Day Surgery H & P - History Proposed Procedure: Thyroid nodule biopsy Pre-Op Diagnosis: MNG - Allergies Allergies: Allergies No Known Allergies Allergy (Verified 05/15/16 18:40) - Physical Exam Vital Signs: Vital Signs 12/18/17 08:56 Temperature 97.8 F Pulse Rate 92 H Respiratory 20 Rate Blood Pressure 136/83 O2 Sat by Pulse 97 Oximetry Mental Status: Alert & Oriented x3 Neuro: WNL Heart: WNL Lungs: WNL Short Stay Discharge - Short Stay Discharge Admitting Diagnosis/Reason for Visit: NONTOXIC SINGLE THYROID NODULE Disposition: HOME/ ROUTINE
--- NOTE | 2017-12-18 12:28 | PCM.SURG1 ---
Surgeon's Initial Post Op Note - Surgeon's Notes Surgeon: Loco Historiography Professor: None Type of Anesthesia: Local Pre-Operative Diagnosis: MNG Operative Findings: Multiple thyroid nodules. Post-Operative Diagnosis: Same Operation Performed: USG right thyroid nodule FNA biopsy Specimen/Specimens Removed: FNA samples Estimated Blood Loss: EBL {In ML}: 1 Date of Surgery/Procedure: 12/18/17 Time of Surgery/Procedure: 12:20
[2017-12-18 14:04] VITALS: O2SAT 98
[2017-12-18 14:05] VITALS: BP 120/70; PULSE 83; RESP 18; TEMP 97.8
== END 2017-12-18 14:05 | disposition home or self-care (01) ==
LOC: C.SPRAD 08:41
PROVIDERS: ATTEND Orthopaedic Surgery Sports Medicine
DX: E04.1 Nontoxic single thyroid nodule (principal)

== ENCOUNTER 2018-01-19 05:35 | Inpatient (IN) | payer OTHER ==
[2018-01-02 08:19] VITALS: BMI 33.9
[2018-01-19] MEDS ORDERED: Propofol 10 mg/ml Inj (20 ML) ONE (07:22)
[2018-01-19] MEDS ORDERED: Midazolam 2 MG/2 ML VIAL ONE (07:22)
[2018-01-19] MEDS ORDERED: Succinylcholine Chloride 20 mg/ml Syr (5 ml) IV ONE (07:25)
[2018-01-19] MEDS ORDERED: ceFAZolin IV 1 gm in Dextrose 2 GM/100 ML BAG IVPB ONE (07:36)
[2018-01-19] MEDS: Lidocaine/Epinephrine 1% 1:100000 10 ML IJ ONE ×2 (09:00→12:40)
[2018-01-19] MEDS: Bupivacaine 0.25% 20 ML INJ IJ ONE ×2 (09:00→12:40)
[2018-01-19] MEDS: Absorbable Gelatin Sponge Size 100 ONE ×2 (09:00→12:40)
[2018-01-19] MEDS: Thrombin Topical 5,000 Int Units Spray Kit ONE ×2 (09:01→12:40)
--- NOTE | 2018-01-19 13:24 | PCM.SURG1 ---
Surgeon's Initial Post Op Note - Surgeon's Notes Surgeon: Dr Duran Ropeman: Dr Nicholson PGY4, Jagruti ROBERTS Type of Anesthesia: General Endo Pre-Operative Diagnosis: thyroid nodule Operative Findings: see report Post-Operative Diagnosis: as above Operation Performed: Total thyroidectomy w/ intra-operative RLN monitoring Specimen/Specimens Removed: left and right lobe of thyroid (2 specimens) Estimated Blood Loss: EBL {In ML}: 25 Blood Products Given: N/A Drains Used: Rupert Salazar Post-Op Condition: Good Date of Surgery/Procedure: 01/19/18 Time of Surgery/Procedure: 13:24
[2018-01-19] MEDS ORDERED: Lactated Ringer's 1,000 ML IV SCH (13:30)
[2018-01-19] MEDS: HYDROmorphone 0.5 mg/0.5 ml ISec IVP PRN ×2 (16:00→20:30)
[2018-01-19 17:29] VITALS: RESP 20
[2018-01-19] MEDS: Dextrose 5%/0.45% NS 1,000 ML IV SCH (17:54)
--- NOTE | 2018-01-19 20:13 | OP ---
PROCEDURE DATE: 01/19/2018 PREOPERATIVE DIAGNOSIS: Multinodular goiter. POSTOPERATIVE DIAGNOSIS: Multinodular goiter. PROCEDURE DONE: 1. Total thyroidectomy. 2. Intraoperative nerve monitoring. SURGEON: Freddie Duran MD ASSISTANTS: Johnathan Nicholson, PGY-4, resident and ARMANDO Ni. ANESTHESIA: General endotracheal tube anesthesia. ESTIMATED BLOOD LOSS: Around 20 mL. DRAINS: The 15-English Brayan drain was placed. COMPLICATIONS: None. INTRAOPERATIVE FINDINGS: The patient had large right inferior lobe thyroid nodule as well as multiple nodule all over the thyroid. DESCRIPTION OF PROCEDURE: On intraoperative steps, this is a 62-year-old female who was diagnosed with multinodular goiter and the patient had dysphagia as well as shortness of breath and the patient was consented for the total thyroidectomy with recurrent laryngeal nerve monitoring and the patient was brought to the OR, placed supine on operating table. After induction of anesthesia, the neck and upper chest was prepped and draped in usual sterile fashion. The recurrent laryngeal nerve electrode was placed subcutaneously and then the curvilinear lower neck incision was made after incising skin and subcutaneous tissue. The platysma was divided, upper and lower flap was created. The upper flap was created up to the thyroid prominence. The lower flap was created up to the sternal notch and laterally the dissection was carried down up to the sternocleidomastoid bilaterally and now the strap muscles were in the midline and the first dissection was carried down on the left side and the left lobe was from the strap muscles. The superior pole dissection was done and the superior pole was ligated with two ties and clip, and then inferior lobe was ligated and laterally the recurrent laryngeal nerve was identified and the recurrent laryngeal nerve was checked with the probe and it was functioning with normal action potential and now the inferior thyroid artery as well as vein was ligated doubly and as well as clipped and the thyroid was dissected from the trachea and the left thyroid lobe was sent off the table for the pathology. Now, the strap muscle was divided from the right thyroid lobe and the dissection was carried down superiorly and superior pole was dissected and it was ligated doubly with two ties as well as clips and now due to the large size of the inferior pole nodule, the thyroid was displacing the trachea and it was growing posteriorly. The dissection was carried down to completely dissect the inferior pole nodule and it was brought into the wound and first inferior pole vessels was ligated, the lateral dissection was done. The dissection was carried down deep and recurrent laryngeal nerve was identified. The recurrent laryngeal nerve had a good action potential on the nerve monitoring and the inferior thyroid vein as well as artery was ligated doubly and the thyroid was dissected free from the trachea and it was sent off the table for the pathology. The pyramidal lobe was also dissected and it was sent off the table with right thyroid lobe specimen and after proper hemostasis, the drain was placed and the strap muscle was approximated and the intraoperative Valsalva maneuver was done. After that the wound was closed, the platysma with 2-0 Vicryl and skin with a 4-0 Monocryl and dry sterile dressing was applied. The drain was secured to the skin. The patient tolerated the procedure well. Count of the instrument and gauze was correct. There was no apparent complication. The patient was extubated in OR, sent to the postanesthesia care in stable condition. Freddie Duran MD
[2018-01-20] MEDS: HYDROmorphone 0.5 mg/0.5 ml ISec IVP PRN ×3 (00:19→09:16)
[2018-01-20 07:58] LABS: BASO % 0.1 % (0.0-2.0); HEMOGLOBIN 11.8 g/dL (11.0-16.0); LYMPH # 1.3 K/uL (1.0-4.3); LYMPH % 15.2 % (20.0-40.0); MEAN CELL VOLUME 87.3 fL (81.0-99.0); MEAN CORPUSCULAR HEMOGLOBIN 29.5 pg (27.0-31.0); MEAN CORPUSCULAR HGB CONC 33.8 g/dL (33.0-37.0); MEAN PLATELET VOLUME 6.6 fL (7.2-11.7); MONO # 0.7 K/uL (0.0-0.8); MONO % 7.5 % (0.0-10.0); NEUT # 6.7 K/uL (1.8-7.0); NEUT % 77.2 % (50.0-75.0); RBC 3.99 Mil/uL (3.80-5.20); RED CELL DISTRIBUTION WIDTH 14.2 % (11.5-14.5)
[2018-01-20 08:08] LABS: WHITE BLOOD COUNT 8.7 K/uL (4.8-10.8)
[2018-01-20 08:14] LABS: BLOOD UREA NITROGEN 14 mg/dL (7-17); CALCIUM 8.5 mg/dl (8.6-10.4); GFR NON-AFRICAN AMERICAN > 60
--- NOTE | 2018-01-20 08:16 | CP.PCM.CON ---
History of Present Illness - History of Present Illness History of Present Illness: Chief complaint: Postoperative thyroidectomy History of present illness: 62-year-old female with a history of chronic lower back pain, osteoarthritis, and also goiter. Patient was recent hospitalized with acute the mini and T12. Patient underwent total, near total colectomy following the complex goiter. Patient postoperatively doing well pain Combining of some pain. Some hoarseness noted. No cough noted. Bleeding was controlled well Past medical history: Chronic lower back pain, she arthritis, pneumonia Allergies no known drug allergy Personal history: Nonsmoker nonalcoholic. Review of systems: Father of natural cause Mother is alive Daughter had a history of asthma Social history nonsmoker nonalcoholic Review of systems noted from the chart. Patient is currently feeling some pain in the neck region postoperative No cough noted. On examination: Vital signs stable. Chest good air entry bilaterally regular heart sound nontender, no pedal edema Assessment: 62-year-old male with history of goiter, obstructing, status post thyroidectomy. Osteoarthritis. Otherwise stable. Postoperative routine management. Monitor TSH level. Close monitoring watch the And will follow the patient Past Patient History - Past Medical History & Family History Past Medical History?: Yes - Past Social History Smoking Status: Never Smoked - CARDIAC Hx Cardiac Disorders: Yes Hx Hypertension: Yes - PULMONARY Hx Respiratory Disorders: Yes Hx Bronchitis: Yes (1 month ago) Hx Pneumonia: Yes - NEUROLOGICAL Hx Neurological Disorder: No Other/Comment: DAILY HEADACHES - HEENT Hx HEENT Problems: No Hx Sinusitis: No Other/Comment: MULTI NODULAR THYROID - RENAL Hx Chronic Kidney Disease: No - ENDOCRINE/METABOLIC Hx Endocrine Disorders: No Other/Comment: MULTI NODULAR THYROID - HEMATOLOGICAL/ONCOLOGICAL Hx Blood Disorders: No - INTEGUMENTARY Hx Dermatological Problems: No - MUSCULOSKELETAL/RHEUMATOLOGICAL Hx Musculoskeletal Disorders: No Hx Back Pain: Yes (LUMBAR) Hx Falls: No - GASTROINTESTINAL Hx Gastrointestinal Disorders: No - GENITOURINARY/GYNECOLOGICAL Hx Genitourinary Disorders: No - PSYCHIATRIC Hx Psychophysiologic Disorder: No Hx Substance Use: No - SURGICAL HISTORY Hx Surgeries: Yes Hx Section: Yes (x6) Other/Comment: THYROID BIOPSY - ANESTHESIA Hx Anesthesia: Yes Hx Anesthesia Reactions: No Hx Malignant Hyperthermia: No Has any member of the family had a problem w/ anesthesia?: No Meds Allergies/Adverse Reactions: Allergies Allergy/AdvReac Type Severity Reaction Status Date / Time No Known Allergies Allergy Verified 08/31/18 08:18 - Medications Medications: Current Medications Hydromorphone HCl (Dilaudid) 0.5 mg IVP Q4H PRN PRN Reason: Pain, Mild (1-3) Last Admin: 01/20/18 05:23 Dose: 0.5 mg Lactated Ringer's (Lactated Ringer's) 1,000 mls @ 100 mls/hr IV .Q10H IRASEMA Cefazolin Sodium 2,000 mg/ (Sodium Chloride) 50 mls @ 100 mls/hr IVPB Q8H IRASEMA PRN Reason: Protocol Last Admin: 01/20/18 04:32 Dose: 100 mls/hr Dextrose/Sodium Chloride (Dextrose 5%/0.45% Ns 1000 Ml) 1,000 mls @ 75 mls/hr IV .[id number] [facility] Last Admin: 01/19/18 17:54 Dose: 75 mls/hr Results - Vital Signs Recent Vital Signs: Last Vital Signs Temp 97.8 F 01/20/18 04:00 Pulse 76 01/20/18 05:20 Resp 20 01/20/18 04:00 BP 128/80 01/20/18 05:20 Pulse Ox 97 01/20/18 05:20 - Labs Result Diagrams: 01/20/18 07:46 01/20/18 07:46 Labs: Laboratory Results - last 24 hr 01/20/18 01/20/18 07:46 07:46 WBC 8.7 D RBC 3.99 Hgb 11.8 Hct 34.8 MCV 87.3 MCH 29.5 MCHC 33.8 RDW 14.2 Plt Count 289 MPV 6.6 L Neut % (Auto) 77.2 H Lymph % (Auto) 15.2 L [place] % (Auto) 7.5 Eos % (Auto) 0.0 Baso % (Auto) 0.1 Neut # (Auto) 6.7 Lymph # (Auto) 1.3 [place] # (Auto) 0.7 Eos # (Auto) 0.0 Baso # (Auto) 0.0 Sodium 141 Potassium 4.4 Chloride 105 Carbon Dioxide 28 Anion Gap 12 BUN 14 Creatinine 0.5 L Est GFR ( Amer) > 60 Est GFR (Non-Af Amer) > 60 Random Glucose 121 H Calcium 8.5 L
[2018-01-20] MEDS: Dextrose 5%/0.45% NS 1,000 ML IV SCH (09:17)
[2018-01-20 12:30] LABS: ALBUMIN 3.6 g/dL (3.5-5.0); ALT/SGPT 26 U/L (9-52); AST/SGOT 23 U/L (14-36)
[2018-01-20] MEDS: Oxycodone/Acetaminophen 5/325 mg Tab PO PRN ×2 (13:05→18:39)
--- NOTE | 2018-01-20 18:22 | CP.PCM.PN ---
Subjective - Date & Time of Evaluation Date of Evaluation: 01/20/18 Time of Evaluation: 06:45 - Subjective Subjective: Gen Sx: Dr Duran Pt S&E. NAEO. Resting comfortably. Pain well controlled. 25cc from drain. Tolerating CLD. Objective - Vital Signs/Intake and Output Vital Signs (last 24 hours): Temp Pulse Resp BP Pulse Ox 97.9 F 77 20 121/74 95 01/20/18 15:27 01/20/18 15:27 01/20/18 15:27 01/20/18 15:27 01/20/18 15:27 Intake and Output: 01/20/18 01/20/18 06:59 18:59 Intake Total 650 Output Total 15 Balance 635 - Medications Medications: Current Medications Cefazolin Sodium 2,000 mg/ (Sodium Chloride) 50 mls @ 100 mls/hr IVPB Q8H IRASEMA PRN Reason: Protocol Last Admin: 01/20/18 13:30 Dose: 100 mls/hr Oxycodone/Acetaminophen (Percocet 5/325 Mg Tab) 1 tab PO Q4H PRN PRN Reason: Pain, Mild (1-3) Stop: 01/23/18 09:26 Last Admin: 01/20/18 13:05 Dose: 1 tab - Labs Labs: 01/20/18 07:46 01/20/18 07:46 - Constitutional Appears: Non-toxic, No Acute Distress - Eye Exam Eye Exam: Normal appearance - Respiratory Exam Respiratory Exam: absent: Accessory Muscle Use, Respiratory Distress - Cardiovascular Exam Cardiovascular Exam: REGULAR RHYTHM - GI/Abdominal Exam GI & Abdominal Exam: Soft. absent: Distended, Tenderness - Neurological Exam Neurological Exam: Alert, Awake, Oriented x3 - Psychiatric Exam Psychiatric exam: Normal Affect, Normal Mood - Skin Skin Exam: Normal Color, Warm Assessment and Plan - Assessment and Plan (Free Text) Assessment: 62F POD#1 s/p thyroidectomy Plan: Ca low range normal no intervention necessary adv to regular diet PO meds remain for one more day of observation d/w Dr Roger Nicholson, PGY4
[2018-01-21] MEDS: Oxycodone/Acetaminophen 5/325 mg Tab PO PRN ×3 (00:19→11:18)
[2018-01-21 08:14] VITALS: BP 119/73; PULSE 69; TEMP 98.1; O2SAT 94
[2018-01-21 13:49] LABS: BASO # 0.1 K/uL (0.0-0.2); BASO % 0.8 % (0.0-2.0); EOS # 0.1 K/uL (0.0-0.7); EOS % 1.5 % (0.0-4.0); HEMOGLOBIN 12.6 g/dL (11.0-16.0); LYMPH # 2.7 K/uL (1.0-4.3); LYMPH % 39.3 % (20.0-40.0); MEAN CELL VOLUME 87.6 fL (81.0-99.0); MEAN CORPUSCULAR HEMOGLOBIN 29.4 pg (27.0-31.0); MEAN CORPUSCULAR HGB CONC 33.6 g/dL (33.0-37.0); MEAN PLATELET VOLUME 6.4 fL (7.2-11.7); MONO # 0.6 K/uL (0.0-0.8); MONO % 8.3 % (0.0-10.0); NEUT # 3.4 K/uL (1.8-7.0); NEUT % 50.1 % (50.0-75.0); NRBC % 0.1 % (0.0-2.0); RBC 4.3 Mil/uL (3.80-5.20); RED CELL DISTRIBUTION WIDTH 14.5 % (11.5-14.5); WHITE BLOOD COUNT 6.8 K/uL (4.8-10.8)
[2018-01-21 14:09] LABS: ALB/GLOB RATIO 1.2 (1.0-2.1); ALT/SGPT 26 U/L (9-52); AST/SGOT 33 U/L (14-36); BLOOD UREA NITROGEN 13 mg/dL (7-17); CALCIUM 8.9 mg/dl (8.6-10.4); GFR NON-AFRICAN AMERICAN > 60
--- NOTE | 2018-01-21 15:54 | CP.PCM.DIS ---
Provider - Provider Date of Admission: 01/19/18 05:35 Attending physician: Freddie Duran MD Primary care physician: Dr. Duran-General surgery Consults: IM- Dr. Peralta Time Spent in preparation of Discharge (in minutes): 35 Diagnosis - Discharge Diagnosis (1) S/P thyroidectomy Status: Acute Hospital Course - Lab Results Lab Results: Most Recent Lab Values WBC 6.8 K/uL (4.8-10.8) 01/21/18 13:45 RBC 4.30 Mil/uL (3.80-5.20) 01/21/18 13:45 Hgb 12.6 g/dL (11.0-16.0) 01/21/18 13:45 Hct 37.7 % (34.0-47.0) 01/21/18 13:45 MCV 87.6 fL (81.0-99.0) 01/21/18 13:45 MCH 29.4 pg (27.0-31.0) 01/21/18 13:45 MCHC 33.6 g/dL (33.0-37.0) 01/21/18 13:45 RDW 14.5 % (11.5-14.5) 01/21/18 13:45 Plt Count 290 K/uL (130-400) 01/21/18 13:45 MPV 6.4 fL (7.2-11.7) L 01/21/18 13:45 Neut % (Auto) 50.1 % (50.0-75.0) 01/21/18 13:45 Lymph % (Auto) 39.3 % (20.0-40.0) 01/21/18 13:45 [place] % (Auto) 8.3 % (0.0-10.0) 01/21/18 13:45 Eos % (Auto) 1.5 % (0.0-4.0) 01/21/18 13:45 Baso % (Auto) 0.8 % (0.0-2.0) 01/21/18 13:45 Neut # (Auto) 3.4 K/uL (1.8-7.0) 01/21/18 13:45 Lymph # (Auto) 2.7 K/uL (1.0-4.3) 01/21/18 13:45 [place] # (Auto) 0.6 K/uL (0.0-0.8) 01/21/18 13:45 Eos # (Auto) 0.1 K/uL (0.0-0.7) 01/21/18 13:45 Baso # (Auto) 0.1 K/uL (0.0-0.2) 01/21/18 13:45 Sodium 143 mmol/L (132-148) 01/21/18 13:45 Potassium 4.4 mmol/L (3.6-5.2) 01/21/18 13:45 Chloride 104 mmol/L (98-107) 01/21/18 13:45 Carbon Dioxide 31 mmol/L (22-30) H 01/21/18 13:45 Anion Gap 12 (10-20) 01/21/18 13:45 BUN 13 mg/dL (7-17) 01/21/18 13:45 Creatinine 0.6 mg/dL (0.7-1.2) L 01/21/18 13:45 Est GFR ( Amer) > 60 01/21/18 13:45 Est GFR (Non-Af Amer) > 60 01/21/18 13:45 Random Glucose 109 mg/dL (65-105) H 01/21/18 13:45 Calcium 8.9 mg/dl (8.6-10.4) 01/21/18 13:45 Magnesium 2.0 mg/dL (1.6-2.3) 01/20/18 07:46 Total Bilirubin 0.5 mg/dL (0.2-1.3) 01/21/18 13:45 AST 33 U/L (14-36) 01/21/18 13:45 ALT 26 U/L (9-52) 01/21/18 13:45 Alkaline Phosphatase 58 U/L (38-126) 01/21/18 13:45 Total Protein 7.4 g/dL (6.3-8.3) 01/21/18 13:45 Albumin 4.0 g/dL (3.5-5.0) 01/21/18 13:45 Globulin 3.4 gm/dL (2.2-3.9) 01/21/18 13:45 Albumin/Globulin Ratio 1.2 (1.0-2.1) 01/21/18 13:45 TSH 3rd Generation 0.16 mIU/L (0.46-4.68) L 01/20/18 07:46 - Hospital Course Hospital Course: 62F w/PMH sig for thyroid nodule with symptoms admitted s/p thyroidectomy for observation. Pt tolerated procedure well, tolerated diet. Pain well controlled. No complications. Patient stable and ready for discharge on hospital day 1. All questions answered at bedside. CECELIA drain removed prior to discharge. Instructions rendered at bedside. Diagnoses: Thyroid nodule with symptoms s/p Thyroidectomy Discharge Exam - Head Exam Head Exam: ATRAUMATIC, NORMAL INSPECTION, NORMOCEPHALIC - Eye Exam Eye Exam: EOMI, Normal appearance - ENT Exam ENT Exam: Mucous Membranes Moist, Normal Exam - Neck Exam Neck exam: Tenderness (over dressing. ) Additional comments: Anterior aspect of neck with dressings in place- clean/dry/intact. CECELIA drain removed, no complications. - Respiratory Exam Respiratory Exam: NORMAL BREATHING PATTERN, UNREMARKABLE - Cardiovascular Exam Cardiovascular Exam: REGULAR RHYTHM, +S1, +S2 - GI/Abdominal Exam GI & Abdominal Exam: Soft, Unremarkable - Extremities Exam Extremities exam: normal inspection - Neurological Exam Neurological exam: Alert, CN II-XII Intact, Oriented x3 - Psychiatric Exam Psychiatric exam: Normal Affect (quiet voice), Normal Mood - Skin Skin Exam: Dry, Intact, Normal Color, Warm Discharge Plan - Discharge Medications Prescriptions: Docusate Sodium [Colace] 100 mg PO BID PRN #60 capsule PRN Reason: Constipation - Follow Up Plan Condition: GOOD Disposition: HOME/ ROUTINE Instructions: Docusate, Oxycodone and Acetaminophen, Thyroidectomy (DC), Managing Pain After Surgery Additional Instructions: please call Dr. Duran's office for a follow up appointment Ok to shower, but cover your dressing with plastic to keep it clean and dry for the next 5 days After 5 days, you can remove your dressing. On your incision, you have special tape, do not remove this It is ok to shower with the special tape. It will fall off on it's own. Ok to take pain medication- do not drive if you take the pain medications Ok to resume diet as tolerated Referrals: Freddie Duran MD [Staff Provider] -
--- NOTE | 2018-01-21 15:58 | CP.PCM.DIS ---
Provider - Provider Date of Admission: 01/19/18 05:35 Attending physician: Freddie Duran MD Time Spent in preparation of Discharge (in minutes): 45 Hospital Course - Lab Results Lab Results: Most Recent Lab Values WBC 6.8 K/uL (4.8-10.8) 01/21/18 13:45 RBC 4.30 Mil/uL (3.80-5.20) 01/21/18 13:45 Hgb 12.6 g/dL (11.0-16.0) 01/21/18 13:45 Hct 37.7 % (34.0-47.0) 01/21/18 13:45 MCV 87.6 fL (81.0-99.0) 01/21/18 13:45 MCH 29.4 pg (27.0-31.0) 01/21/18 13:45 MCHC 33.6 g/dL (33.0-37.0) 01/21/18 13:45 RDW 14.5 % (11.5-14.5) 01/21/18 13:45 Plt Count 290 K/uL (130-400) 01/21/18 13:45 MPV 6.4 fL (7.2-11.7) L 01/21/18 13:45 Neut % (Auto) 50.1 % (50.0-75.0) 01/21/18 13:45 Lymph % (Auto) 39.3 % (20.0-40.0) 01/21/18 13:45 [place] % (Auto) 8.3 % (0.0-10.0) 01/21/18 13:45 Eos % (Auto) 1.5 % (0.0-4.0) 01/21/18 13:45 Baso % (Auto) 0.8 % (0.0-2.0) 01/21/18 13:45 Neut # (Auto) 3.4 K/uL (1.8-7.0) 01/21/18 13:45 Lymph # (Auto) 2.7 K/uL (1.0-4.3) 01/21/18 13:45 [place] # (Auto) 0.6 K/uL (0.0-0.8) 01/21/18 13:45 Eos # (Auto) 0.1 K/uL (0.0-0.7) 01/21/18 13:45 Baso # (Auto) 0.1 K/uL (0.0-0.2) 01/21/18 13:45 Sodium 143 mmol/L (132-148) 01/21/18 13:45 Potassium 4.4 mmol/L (3.6-5.2) 01/21/18 13:45 Chloride 104 mmol/L (98-107) 01/21/18 13:45 Carbon Dioxide 31 mmol/L (22-30) H 01/21/18 13:45 Anion Gap 12 (10-20) 01/21/18 13:45 BUN 13 mg/dL (7-17) 01/21/18 13:45 Creatinine 0.6 mg/dL (0.7-1.2) L 01/21/18 13:45 Est GFR ( Amer) > 60 01/21/18 13:45 Est GFR (Non-Af Amer) > 60 01/21/18 13:45 Random Glucose 109 mg/dL (65-105) H 01/21/18 13:45 Calcium 8.9 mg/dl (8.6-10.4) 01/21/18 13:45 Magnesium 2.0 mg/dL (1.6-2.3) 01/20/18 07:46 Total Bilirubin 0.5 mg/dL (0.2-1.3) 01/21/18 13:45 AST 33 U/L (14-36) 01/21/18 13:45 ALT 26 U/L (9-52) 01/21/18 13:45 Alkaline Phosphatase 58 U/L (38-126) 01/21/18 13:45 Total Protein 7.4 g/dL (6.3-8.3) 01/21/18 13:45 Albumin 4.0 g/dL (3.5-5.0) 01/21/18 13:45 Globulin 3.4 gm/dL (2.2-3.9) 01/21/18 13:45 Albumin/Globulin Ratio 1.2 (1.0-2.1) 01/21/18 13:45 TSH 3rd Generation 0.16 mIU/L (0.46-4.68) L 01/20/18 07:46 - Hospital Course Hospital Course: 62 F with thyroid nodules came to [facility] for total thyroidectomy. Pt had thyroid nodules b/l and had US and biopsy done. Pt underwent total thyroidectomy and tolerated it well. The following day pt continued to have pain. On POD 2 Pain is better controlled. Toleated regular diet. Drain put out 10cc ss fluids/ 24hrs. Pt is cleared to go home. Post op labs were unremarkable. Discharge Exam - Head Exam Head Exam: ATRAUMATIC, NORMAL INSPECTION, NORMOCEPHALIC Discharge Plan - Discharge Medications Prescriptions: Docusate Sodium [Colace] 100 mg PO BID PRN #60 capsule PRN Reason: Constipation - Follow Up Plan Condition: GOOD Disposition: HOME/ ROUTINE Instructions: Docusate, Oxycodone and Acetaminophen, Thyroidectomy (DC), Managing Pain After Surgery Additional Instructions: please call Dr. Duran's office for a follow up appointment Ok to shower, but cover your dressing with plastic to keep it clean and dry for the next 5 days After 5 days, you can remove your dressing. On your incision, you have special tape, do not remove this It is ok to shower with the special tape. It will fall off on it's own. Ok to take pain medication- do not drive if you take the pain medications Ok to resume diet as tolerated Referrals: Freddie Duran MD [Staff Provider] -
== END 2018-01-21 16:26 | disposition home or self-care (01) | DRG 627 ==
LOC: C.9S 05:35 → C.3T 16:29 → C.6T 16:35
PROVIDERS: ADMIT Surgery Surgical Critical Care; ATTEND Surgery Surgical Critical Care
PROC: 0GTH0ZZ Resection of Right Thyroid Gland Lobe, Open Approach (ICD-10-PCS; 2018-01-19)
PROC: 0G9 Endocrine System, Drainage (ICD-10-PCS; 2018-01-19)
PROC: 0GTG0ZZ Resection of Left Thyroid Gland Lobe, Open Approach (ICD-10-PCS; principal; 2018-01-19 07:30)
DX: E04.2 Nontoxic multinodular goiter (principal); M19.90 Unspecified osteoarthritis, unspecified site; I10 Essential (primary) hypertension

== ENCOUNTER 2018-05-06 09:16 | Outpatient (CLI) | payer OTHER | END 2018-05-06 09:17 | disposition home or self-care (01) | LOC: C.LAB 09:16 | DX: E03.8 Other specified hypothyroidism (principal); E66.3 Overweight; Z00.01 Encounter for general adult medical examination with abnormal findings; Z12.31 Encounter for screening mammogram for malignant neoplasm of breast ==

== ENCOUNTER 2018-05-07 13:20 | Outpatient (CLI) | payer OTHER | END 2018-05-07 13:21 | disposition home or self-care (01) | LOC: C.MAMMO 13:21 ==

== ENCOUNTER 2018-06-30 06:48 | Outpatient (CLI) | payer OTHER | END 2018-06-30 06:49 | disposition home or self-care (01) | LOC: C.LAB 06:48 ==

== ENCOUNTER 2018-08-06 06:17 | Outpatient (CLI) | payer OTHER | END 2018-08-06 06:18 | disposition home or self-care (01) | LOC: C.LAB 06:17 | DX: E03.9 Hypothyroidism, unspecified (principal) ==

== ENCOUNTER 2018-08-24 11:30 | Outpatient (CLI) | payer OTHER | END 2018-08-24 11:31 | disposition home or self-care (01) | LOC: C.LAB 11:30 ==